=== PATIENT | female | born 1975 | race Caucasian/White ===

== ENCOUNTER → 2025-02-04 | Outpatient (CLI) | payer BC, SELFPAY ==
--- NOTE | 2025-02-04 07:11 | XR_ITS ---
Examination: Pelvic ultrasound, transabdominal, complete Technique: Transabdominal ultrasound of the pelvis performed using grayscale imaging Date and time of exam: February 04, 2025 0717 hours INDICATIONS: Severe pelvic pain vomiting beginning 3 days ago FINDINGS: Absent uterus Cystic structure adjacent to the cervix 3.5 x 3.8 x 3.9 cm Right ovary 2.8 cm arterial flow, 10 mm cyst Left ovary obscured by bowel gas IMPRESSION: Cystic mass with internal echoes anterior to the cervix, 3.5 x 3.8 x 3.9 cm, differential would include abscess, necrotic tumor Recommend MRI pelvis follow-up pre and postcontrast
[2025-02-04 08:40] LABS: Basophils % (Auto) 0 % (0-2.5); Eosinophils # (Auto) 0.1 Thou/mm3 (0.0-0.5); Eosinophils % (Auto) 1 % (0-10); Hematocrit 41.7 % (36.0-46.0); Hemoglobin 14.1 g/dL (12.0-16.0); Immature Granulocytes % (Auto) 0 % (0-0); Immature Granulocytes Auto 0.04 Thou/mm3 (0.00-0.00); Lymphocytes # (Auto) 1.6 Thou/mm3 (1.0-4.8); Lymphocytes % (Auto) 13 % (10-50); Mean Corpuscular HGB Conc 33.8 g/dl (31.0-37.0); Mean Corpuscular Hemoglobin 30.6 pg (25.0-35.0); Mean Corpuscular Volume 91 fL (80-100); Monocytes # (Auto) 0.6 Thou/mm3 (0.0-0.8); Monocytes % (Auto) 5 % (0-12); Neutrophils # (Auto) 9.7 Thou/mm3 (1.8-7.7); Neutrophils % (Auto) 81 % (37-80); Nucleated Red Blood Cell % 0 /100 WBC (0); Platelet Count 249 Thou/mm3 (140-440); RDW Standard Deviation 43.6 fL (36.4-46.3); Red Blood Count 4.61 Miln/mm3 (4.00-5.20); White Blood Count 12.1 Thou/mm3 (3.6-11.0)
[2025-02-04 08:54] LABS: Follicle Stimulating Hormone 26.91 mIU/mL (See Note)
[2025-02-04 09:04] LABS: Cardiac Risk Estimate 2.3 RATIO (3.7-5.6); Cholesterol 168 mg/dL (132-200); HDL Cholesterol 73 mg/dL (40-60); LDL Cholesterol,Calculated 77 mg/dL (0-130); Thyroid Stimulating Hormone 0.46 uIU/mL (0.55-4.78); Triglycerides 90 mg/dL (30-150); Uric Acid 3.6 mg/dL (3.1-7.8)
[2025-02-04 09:06] LABS: Sed Rate (ESR) 28 mm/hr (0-20)
[2025-02-04 09:24] LABS: C-Reactive Protein 12.8 mg/dL (0.0-0.9)
== END | disposition home or self-care (01) ==
LOC: CDIM 06:53
PROVIDERS: PCP Family Medicine; Referring Provider Registered Nurse Community Health; Visit Provider Registered Nurse Community Health
DX: N88.8 Other specified noninflammatory disorders of cervix uteri (principal)
CPT/HCPCS: 36415; 76856; 80061; 82670; 83001; 83002; 84443; 84550; 85025; 85652; 86140

== ENCOUNTER → 2025-02-21 | Outpatient (CLI) | payer BC, SELFPAY ==
[2025-02-21 13:19] LABS: Basophils % (Auto) 1 % (0-2.5); Eosinophils # (Auto) 0.1 Thou/mm3 (0.0-0.5); Eosinophils % (Auto) 2 % (0-10); Hematocrit 43.1 % (36.0-46.0); Hemoglobin 14.4 g/dL (12.0-16.0); Immature Granulocytes % (Auto) 0 % (0-0); Immature Granulocytes Auto 0.02 Thou/mm3 (0.00-0.00); Lymphocytes # (Auto) 1.8 Thou/mm3 (1.0-4.8); Lymphocytes % (Auto) 29 % (10-50); Mean Corpuscular HGB Conc 33.4 g/dl (31.0-37.0); Mean Corpuscular Hemoglobin 29.9 pg (25.0-35.0); Mean Corpuscular Volume 89 fL (80-100); Monocytes # (Auto) 0.3 Thou/mm3 (0.0-0.8); Monocytes % (Auto) 5 % (0-12); Neutrophils # (Auto) 4.1 Thou/mm3 (1.8-7.7); Neutrophils % (Auto) 64 % (37-80); Nucleated Red Blood Cell % 0 /100 WBC (0); Platelet Count 296 Thou/mm3 (140-440); RDW Standard Deviation 43.6 fL (36.4-46.3); Red Blood Count 4.82 Miln/mm3 (4.00-5.20); White Blood Count 6.4 Thou/mm3 (3.6-11.0)
[2025-02-21 13:22] LABS: Glucose Estimated Average 123 mg/dL (80-131); Hemoglobin A1C 5.9 % Hgb (4.8-6.0)
[2025-02-21 13:27] LABS: Alanine Aminotransferase 21 U/L (10-49); Albumin, Serum 4.3 gm/dL (3.5-5.0); Albumin/Globulin Ratio 1.4 (1.2-2.2); Alkaline Phosphatase 95 U/L (46-116); Anion Gap 8 (7-16); Aspartate Amino Transferase 19 U/L (0-34); BUN/Creatinine Ratio 23 Ratio (12-20); Bilirubin,Total 0.4 mg/dL (0.3-1.2); Blood Urea Nitrogen 18 mg/dL (9-23); Calcium 9.4 mg/dL (8.3-10.6); Calcium (Corrected) 9.4 mg/dL (8.5-10.1); Carbon Dioxide 27.7 mMol/L (20.0-31.0); Chloride 106 mMol/L (98-107); Creatinine (Component) 0.8 mg/dL (0.6-1.3); Free T4 (Free Thyroxine) 1.22 ng/dL (0.89-1.76); Globulin 3.1 gm/dL (2.3-3.5); Glucose 152 mg/dL (74-106); Osmolality,Calculated 288 (275-295); Sodium 142 mMol/L (136-145); Thyroid Stimulating Hormone 0.51 uIU/mL (0.55-4.78); Total Protein 7.4 gm/dL (5.7-8.2); eGFR > 60 See Note
[2025-02-21 13:32] LABS: Follicle Stimulating Hormone 50.39 mIU/mL (See Note)
[2025-03-11 07:34] LABS: DHEA Sulfate* 198 mcg/dL (19-231); Estrogen, Total, Serum* 69 pg/mL; Luteinizing Hormone* 14.1 mIU/mL; Progesterone,LC/MS* <0.1 ng/mL; Testosterone, Free,Dialysis 2.4 pg/mL (0.1-6.4); Testosterone, Total, Dialysis 14 ng/dL (2-45)
== END | disposition home or self-care (01) ==
LOC: COPL 12:27
PROVIDERS: PCP Family Medicine; Referring Provider Specialist; Visit Provider Specialist
DX: D72.829 Elevated white blood cell count, unspecified (principal)
CPT/HCPCS: 36415; 80053; 82627; 82672; 83001; 83002; 83036; 84144; 84146; 84402; 84403; 84439; 84443; 85025

== ENCOUNTER 2025-04-16 05:45 | Day surgery (SDC) | payer BC, SELFPAY ==
--- NOTE | 2025-04-11 21:55 | ESHP_ITS ---
RE: NESSA RECIO : 1975 DATE OF ADMISSION: 04/16/2025 HISTORY OF PRESENT ILLNESS: This is a 50-year-old 3, para 3 who is undergoing diagnostic laparoscopy and right oophorectomy for a right adnexal mass. PAST MEDICAL HISTORY: Chronic hypertension, genuine stress urinary incontinence, deep vein thrombosis. PAST SURGICAL HISTORY: Abdominal hysterectomy. ALLERGIES: PATIENT IS ALLERGIC TO ORIAHNN. MEDICATIONS: Losartan 100 mg one p.o. daily. SOCIAL HISTORY: She denies any alcohol, drug use, or smoking. FAMILY HISTORY: Diabetes, hypertension, heart disease, and stroke. OBSTETRIC HISTORY: Three previous full-term normal vaginal deliveries. REVIEW OF SYSTEMS: She denies any chest pain, palpitations, cough, fever, shortness of breath, or lower extremity pain. PHYSICAL EXAMINATION: VITAL SIGNS: Blood pressure is 138/74, heart rate 88, respirations 18, temperature 97.7. HEENT: Oropharynx and sclerae are clear. LUNGS: Clear to auscultation bilaterally. HEART: Regular rate and rhythm. ABDOMEN: Old Pfannenstiel scar noted. EXTREMITIES: Nontender. SKIN: No gross rashes or lesions. NEUROLOGIC: No focal deficit. ASSESSMENT: Right adnexal mass. PLAN: Diagnostic laparoscopy, right oophorectomy, possible laparotomy. Informed consent was obtained. The patient was made aware of the risks, complications, alternatives, and benefits of the proposed procedure and she agrees. She is aware of the risk of injury to bowel or bladder, ureters, adjacent organs, pulmonary embolism, deep vein thrombosis, injury to the vessels of the abdominal wall, hematoma, abscess, wound infection, wound dehiscence, pelvic infection, reoperation to repair injury to internal organs, anesthesia complications, the possibility that a laparotomy needs to be performed to complete the procedure or control bleeding, and the possibility that the procedure is not able to be completed due to severe adhesions or technical difficulties. DT: 20:44:25 TT: 21:52:00 Ref: [id number] - TID: [id number] MTDD
[2025-04-15 11:42] VITALS: BMI 32.3
--- NOTE | 2025-04-15 11:58 | EKG_ITS ---
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
[2025-04-15 13:29] LABS: Basophils % (Auto) 0 % (0-2.5); Eosinophils # (Auto) 0.1 Thou/mm3 (0.0-0.5); Eosinophils % (Auto) 2 % (0-10); Hematocrit 42.4 % (36.0-46.0); Hemoglobin 14.8 g/dL (12.0-16.0); Immature Granulocytes % (Auto) 0 % (0-0); Immature Granulocytes Auto 0.01 Thou/mm3 (0.00-0.00); Lymphocytes % (Auto) 33 % (10-50); Mean Corpuscular HGB Conc 34.9 g/dl (31.0-37.0); Mean Corpuscular Volume 86 fL (80-100); Monocytes # (Auto) 0.4 Thou/mm3 (0.0-0.8); Monocytes % (Auto) 6 % (0-12); Neutrophils # (Auto) 3.6 Thou/mm3 (1.8-7.7); Neutrophils % (Auto) 59 % (37-80); Nucleated Red Blood Cell % 0 /100 WBC (0); Platelet Count 246 Thou/mm3 (140-440); RDW Standard Deviation 42.5 fL (36.4-46.3); Red Blood Count 4.94 Miln/mm3 (4.00-5.20)
[2025-04-15 13:36] LABS: Partial Thromboplastin Time 28.5 Seconds (22.0-36.0); Prothrombin Time 10.9 Seconds (9.0-12.2)
[2025-04-15 13:42] LABS: Alanine Aminotransferase 40 U/L (10-49); Albumin, Serum 4.4 gm/dL (3.5-5.0); Albumin/Globulin Ratio 1.6 (1.2-2.2); Alkaline Phosphatase 82 U/L (46-116); Anion Gap 7 (7-16); Aspartate Amino Transferase 34 U/L (0-34); BUN/Creatinine Ratio 27 Ratio (12-20); Bilirubin,Total 0.6 mg/dL (0.3-1.2); Blood Urea Nitrogen 19 mg/dL (9-23); Calcium 9.2 mg/dL (8.3-10.6); Calcium (Corrected) 9.2 mg/dL (8.5-10.1); Carbon Dioxide 29.1 mMol/L (20.0-31.0); Chloride 104 mMol/L (98-107); Creatinine (Component) 0.7 mg/dL (0.6-1.3); Estimated Creatinine Clearance 95.4 mL/min (>60); Globulin 2.8 gm/dL (2.3-3.5); Glucose 119 mg/dL (74-106); Osmolality,Calculated 282 (275-295); Potassium 4.3 mMol/L (3.4-5.1); Sodium 140 mMol/L (136-145); Total Protein 7.2 gm/dL (5.7-8.2); eGFR > 60 See Note
[2025-04-16] VITALS (8 sets, daily range): BP systolic 148–190; BP diastolic 84–101; PULSE 66–74; RESP 13–20; TEMP 36.2–36.4; O2SAT 95–100; BMI 32.3
--- NOTE | 2025-04-16 07:18 | CHAP ---
Patient was very positive and very glad to see me. She talked to me a little about what she was experiencing and her hope that this procedure would bring relief. I gave her some words of encouragement and prayer.
[2025-04-16] MEDS: RINGERS LACTATED 1000 ML 1,000 ML 30 ML IV (07:29)
--- NOTE | 2025-04-16 08:31 | SUR.PHASEI ---
pt received from OR in recovery bay 3. pt asleep but responds to voice, breathing unlabored on oxymask 8l. v/s stable. pt dressing to abd x3 cdi. report received from [facility] and Dr. Echeverria.
[2025-04-16] MEDS: ONDANSETRON INJ 2 MG/ML INJ 2 ML 4 MG IVP (08:43)
[2025-04-16] MEDS: ACETAMINOPHEN IVPB 1,000 MG/100 ML VIAL 250 MG IV (08:57)
[2025-04-16] MEDS: fentaNYL CIT INJ 50 mCg/ML AMP 2ML 25 MCG IVP (09:00)
--- NOTE | 2025-04-16 09:03 | SUR.PHASEI ---
pt able to tolerate ice chips without difficulty swallowing or nasuea/vomiting.
--- NOTE | 2025-04-16 09:45 | SUR.PHASEII ---
pt awake and alert, breathing unlabored on room air. v/s stable. pt dressing to abd dermabond x3 cdi. pt able to ambulate to wheelchair with steady gait. d/c instructions given with Steve in room, all questions answered. pt d/c via wheelchair with all belongings.
--- NOTE | 2025-04-16 13:47 | ESOP_ITS ---
RE: NESSA RECIO : 1975 DATE OF OPERATION: 04/16/2025 PREOPERATIVE DIAGNOSIS: Right adnexal mass. POSTOPERATIVE DIAGNOSIS: Right adnexal mass. PROCEDURE PERFORMED: Diagnostic laparoscopy and right oophorectomy. SURGEON: Seth Pearson DO SECOND CUTTER: MOISES Edouard ANESTHESIA: General. ANESTHESIOLOGIST: Dr. Echeverria. ESTIMATED BLOOD LOSS: 25 mL. COMPLICATIONS: None. COUNTS: Correct. PATHOLOGY: Right ovary FINDINGS: A 4.5 x 4.5 cm right ovary adherent to the posterior cul-de-sac. The left ovary was not visualized due to pelvic adhesions. DESCRIPTION OF PROCEDURE: After proper informed consent was obtained and the patient was made aware of the risks, complications, alternatives, and benefits of the proposed procedure, she was taken to the operating room where she underwent induction of general anesthesia. She was placed in the dorsal lithotomy position. She was prepped and draped in the usual sterile fashion. Timeout was performed. Then, a uterine manipulator was placed. Attention was turned to the abdomen where the physician regowned and gloved and 5-mm incision was made in the umbilical fold with tenting up to the abdomen. A Veress was inserted. Saline confirmed intra-abdominal placement and artificial pneumoperitoneum was created to 12 mmHg. The Veress needle was then removed. A 5-mm trocar was inserted with tenting up to the abdomen. The laparoscope-connected video camera was then utilized to visualize the pelvis. A second incision was made in the midline 2 cm above the symphysis pubis. Through this, a 10 mm incision of 10-mm trocar was inserted under direct visualization of the laparoscope. Attention was then turned to the left lower quadrant where a 5-mm incision was made. Through this 5-mm incision, a 5-mm trocar was inserted under direct visualization of the laparoscope. Using a Jimenez gut grasper and the 1136 Harmonic scalpel, the right oophorectomy was performed. Hemostasis was achieved. The specimen was removed through the Endopouch. There was no bleeding at the end of the procedure. Carbon dioxide was removed from the peritoneal cavity. The fascia was closed with 0 Vicryl using the Bubba Cheung needle. The incisions were infiltrated with Marcaine and closed with 4-0 Monocryl and covered with Dermabond. Attention was then turned to the vagina where the uterine manipulator was then removed. There was no bleeding at the end of the procedure. She was reversed from general anesthesia in the supine position and transferred to the recovery room in stable condition. She tolerated the procedure well. Counts were correct. I discussed with the patient's family, the nature of her condition, intraoperative findings, and expectation of recovery. All questions answered. DT: 11:30:13 TT: 13:45:00 Ref: [id number] - TID: [id number] [facility]
== END 2025-04-16 09:45 | disposition home or self-care (01) ==
PROVIDERS: PCP Family Medicine; Referring Provider Specialist; Visit Provider Specialist
PROC: (CPT 58720; principal; 2025-04-16 07:30)
DX: N83.11 Corpus luteum cyst of right ovary (principal); Z90.710 Acquired absence of both cervix and uterus; Z01.810 Encounter for preprocedural cardiovascular examination
CPT/HCPCS: 58661; 36415; 80053; 84702; 85025; 85610; 85730; 86850; 86900; 86901; 93005; A4217; A4649; J0131; J0690; J1100; J1885; J2250; J2405; J2704; J3010; J3490; J7120; J0665